=== PATIENT | female | born 1985 | race Caucasian/White ===

== ENCOUNTER 2017-10-23 22:42 | Emergency (ER) | payer OTHER ==
[2017-10-23 22:49] VITALS: BP 121/95
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
[2017-10-23] MEDS ORDERED: TDAP ADULT 0.5 ML INJ (BOOSTRIX) IM ONE (23:04)
[2017-10-24 00:07] LABS: HEPATITIS B SURFACE ANTIGEN NEGATIVE (NEGATIVE)
[2017-10-24 00:24] LABS: HEPATITIS C ANTIBODY TOTAL NEGATIVE (NEGATIVE); HIV TYPE 1 AND 2 NEGATIVE (NEGATIVE)
== END 2017-10-23 23:21 | disposition home or self-care (01) ==
DX: S61.031A Puncture wound without foreign body of right thumb without damage to nail, initial encounter (principal); Z23 Encounter for immunization; W27.3XXA Contact with needle (sewing), initial encounter; Y92.69 Other specified industrial and construction area as the place of occurrence of the external cause; Y99.0 Civilian activity done for income or pay; Y93.89 Activity, other specified
CPT/HCPCS: G0472

== ENCOUNTER 2018-03-01 17:08 | Emergency (ER) | payer OTHER ==
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
[2018-03-01 18:44] VITALS: BP 125/85
== END 2018-03-01 18:45 | disposition home or self-care (01) ==
DX: R46.4 Slowness and poor responsiveness (principal); V86.99XA Unspecified occupant of other special all-terrain or other off-road motor vehicle injured in nontraffic accident, initial encounter; Y92.89 Other specified places as the place of occurrence of the external cause